=== PATIENT | male | born 1990 ===

== ENCOUNTER 2018-05-02 20:42 | Inpatient (IN) ==
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
[2018-05-02] MEDS: Propofol 1000 mg/100 ml Inj 1,000 MG/100 ML BOTTLE IV.CONT PRN (21:00)
[2018-05-02 21:02] LABS: Baso # (Auto) 0.2 th/mm3 (0.0-0.2); Baso % (Auto) 1.3 % (0.0-2.0); Eos # (Auto) 0.5 th/mm3 (0.0-0.4); Eos % (Auto) 3.9 % (0.0-4.0); Hemoglobin 15.5 gm/dL (13.0-17.0); Lymph # (Auto) 5.4 th/mm3 (1.0-4.8); Lymph % (Auto) 44.2 % (9.0-44.0); Mean Corpuscular HGB Conc 32.2 % (32.0-36.0); Mean Corpuscular Hemoglobin 28.4 pg (27.0-34.0); Mean Platelet Volume 8.2 fL (7.0-11.0); Mono # (Auto) 0.8 th/mm3 (0.0-0.9); Mono % (Auto) 6.2 % (0.0-8.0); Neut # (Auto) 5.4 th/mm3 (1.8-7.7); Neut % (Auto) 44.4 % (16.0-70.0); Platelet Count 409 th/mm3 (150-450); Red Blood Count 5.45 mil/mm3 (4.50-5.90); Red Cell Distribution Width 14.6 % (11.6-17.2); White Blood Count 12.3 th/mm3 (4.0-11.0)
[2018-05-02] MEDS ORDERED: Propofol 1000 mg/100 ml Inj 1,000 MG/100 ML BOTTLE IV.CONT PRN (21:02)
[2018-05-02] MEDS ORDERED: Bisacodyl 10 MG Supp RECTAL PRN (21:02)
[2018-05-02 21:12] LABS: Activated Partial Thrombo Time 24.2 sec (24.3-30.1); Prothrombin Time 9.7 sec (9.8-11.6)
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
[2018-05-02] MEDS ORDERED: Sod Chloride 0.9% Inj 1,000 ML IV.CONT SCH (21:15)
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
[2018-05-02 21:40] LABS: Eosinophils 3 % (0-4); Lymphocytes 45 % (9-44); Monocytes 6 % (0-8)
[2018-05-02 21:41] LABS: Platelet Estimate Normal (Normal); Platelet Morphology Normal (Normal)
[2018-05-02] MEDS: Midazolam 50 MG/50 ML Inj 50 MG/50 ML BAG IV.CONT PRN (22:00)
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
[2018-05-02 22:44] LABS: ABG Base Excess -0.3 mmol/L (-2-2); ABG PCO2 49 mmHg (38-42); ABG PO2 219 mmHg (61-120)
[2018-05-03] MEDS: Sod Chloride 0.9% Inj 1,000 ML IV.CONT SCH ×3 (02:37→19:09)
[2018-05-03] MEDS: levETIRAcetam 1000mg/100mL Inj 100 ML IV.SIG SCH ×3 (02:37→21:15)
[2018-05-03] MEDS: Propofol 1000 mg/100 ml Inj 1,000 MG/100 ML BOTTLE IV.CONT PRN ×3 (02:45→11:01)
[2018-05-03] MEDS ORDERED: Chlorhexidine Gluconate 2% 1 Pack (2 Cloths) TOPICAL PRN (04:00)
[2018-05-03 04:18] LABS: Alanine Aminotransferase 22 U/L (12-78); Albumin 3.4 g/dL (3.4-5.0); Anion Gap 7 meq/L (5-15); Aspartate Aminotransferase 17 U/L (15-37); Blood Urea Nitrogen 11 mg/dL (7-18); Calcium 7.5 mg/dL (8.5-10.1); Carbon Dioxide 27.8 meq/L (21.0-32.0); Chloride 114 meq/L (98-107); Glomerular Filtration Rate 69 mL/min (>89); Glucose,Random 90 mg/dL (74-106); Magnesium 2.1 mg/dL (1.5-2.5); Sodium 149 meq/L (136-145)
[2018-05-03 04:20] LABS: Alkaline Phosphatase 73 U/L (45-117); Baso # (Auto) 0.1 th/mm3 (0.0-0.2); Baso % (Auto) 1.1 % (0.0-2.0); Eos # (Auto) 0.2 th/mm3 (0.0-0.4); Eos % (Auto) 2.4 % (0.0-4.0); Hematocrit 40.6 % (39.0-51.0); Hemoglobin 13.5 gm/dL (13.0-17.0); Lymph # (Auto) 3.6 th/mm3 (1.0-4.8); Lymph % (Auto) 37.5 % (9.0-44.0); Mean Corpuscular HGB Conc 33.3 % (32.0-36.0); Mean Corpuscular Hemoglobin 28.7 pg (27.0-34.0); Mean Corpuscular Volume 86.3 fL (80.0-100.0); Mean Platelet Volume 8.2 fL (7.0-11.0); Mono # (Auto) 0.7 th/mm3 (0.0-0.9); Mono % (Auto) 6.9 % (0.0-8.0); Neut % (Auto) 52.1 % (16.0-70.0); Platelet Count 280 th/mm3 (150-450); Red Blood Count 4.71 mil/mm3 (4.50-5.90); Red Cell Distribution Width 14.3 % (11.6-17.2); Total Protein 5.9 g/dL (6.4-8.2); White Blood Count 9.6 th/mm3 (4.0-11.0)
[2018-05-03] MEDS: Chlorhexidine Gluconate 2% 1 Pack (2 Cloths) TOPICAL SCH (05:13)
[2018-05-03] MEDS: Midazolam 50 MG/50 ML Inj 50 MG/50 ML BAG IV.CONT PRN (05:14)
[2018-05-03 06:54] LABS: ABG Base Excess 1.8 mmol/L (-2-2); ABG PCO2 45 mmHg (38-42); ABG PO2 164 mmHg (61-120)
[2018-05-03] MEDS ORDERED: Pantoprazole Inj 40 MG Vial IV.PUSH SCH (09:00)
[2018-05-03] MEDS ORDERED: fentaNYL Citrate Inj 100 MCG/2 ML Ampul IV.PUSH PRN (09:42)
[2018-05-03] MEDS: Chlorhexidine 0.12% Oral Kit 15 ML UDC OROPHARYNG SCH ×2 (10:42→21:15)
[2018-05-03] MEDS: Senna/Docusate Sodium 8.6/50 MG Tablet PO SCH ×2 (10:45→21:14)
[2018-05-03] MEDS: Famotidine 20 MG Tablet PO SCH ×2 (10:50→21:14)
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
[2018-05-03] MEDS: Oral Hygiene Kit OROPHARYNG SCH ×2 (12:57→19:09)
[2018-05-03 13:09] LABS: Amphetamine Screen,Urine Neg (Neg); Barbiturate Screen,Urine Neg (Neg); Cannabinoid Screen,Urine Neg (Neg); Cocaine Screen,Urine Neg (Neg)
[2018-05-03 13:14] LABS: Opiate Screen,Urine Neg (Neg)
[2018-05-03 13:45] LABS: Free T4 (Free Thyroxine) 0.86 ng/dL (0.76-1.46); Thyroid Stimulating Hormone 0.271 uIU/mL (0.358-3.740)
--- NOTE | 2018-05-03 14:21 | MG ---
cc: Lázaro Vargas MD, PhD TEST NUMBER: [id number] TECHNIQUE: A 17-channel EEG DESCRIPTION: The background rhythm reveals symmetric rhythm with a fairly rapid frequency of about 15-18 Hz. The amplitude is 30 microvolts. Underlying this rhythm appears to be a slower rhythm in the theta frequency, at times delta frequency at 4 Hz to 6 Hz. There are no lateralizing features. There are no epileptiform discharges present. Hyperventilation was not done. Photic results in a modest driving response. INTERPRETATION: Abnormal study. The background rhythm is generally slow consistent with an encephalopathy. However, there is a much more rapid superimposed rhythm which is probably medication effect, i.e., benzodiazepine. Lázaro Vargas MD, PhD NIGEL/carolin , 02:03 PM , 02:05 PM
[2018-05-03 14:33] LABS: Amorphous Sediment,Urine Many /hpf; Bilirubin,Urine Negative (Negative); Clarity,Urine Turbid (Clear); Color,Urine Yellow (Yellw/Straw); Glucose,Urine (UA) Negative (Negative); Leukocyte Esterase,Urine Trace (Negative); Mucus,Urine Few /lpf (Occasional); Nitrite,Urine Negative (Negative); Specific Gravity,Urine 1.032 (1.002-1.035); Squamous Epithelial Cell,Urine 1 /hpf (0-5)
[2018-05-03] MEDS: Acetaminophen 325 MG Tablet PO PRN (21:15)
[2018-05-03] MEDS: HYDROmorphone PF Inj 2 MG/ML Vial IV.PUSH PRN (21:54)
[2018-05-04] MEDS: Oral Hygiene Kit OROPHARYNG SCH ×3 (00:53→13:10)
[2018-05-04] MEDS: HYDROmorphone PF Inj 2 MG/ML Vial IV.PUSH PRN ×5 (00:53→14:06)
[2018-05-04] MEDS: Acetaminophen 325 MG Tablet PO PRN ×4 (03:26→20:18)
[2018-05-04] MEDS: Chlorhexidine Gluconate 2% 1 Pack (2 Cloths) TOPICAL SCH (03:27)
[2018-05-04] MEDS: Sod Chloride 0.9% Inj 1,000 ML IV.CONT SCH (03:27)
[2018-05-04 04:44] LABS: Baso # (Auto) 0.1 th/mm3 (0.0-0.2); Baso % (Auto) 0.6 % (0.0-2.0); Eos # (Auto) 0.1 th/mm3 (0.0-0.4); Eos % (Auto) 0.9 % (0.0-4.0); Hemoglobin 11.9 gm/dL (13.0-17.0); Mean Corpuscular HGB Conc 33.2 % (32.0-36.0); Mean Corpuscular Hemoglobin 28.9 pg (27.0-34.0); Mean Platelet Volume 8.2 fL (7.0-11.0); Mono % (Auto) 9.2 % (0.0-8.0); Neut # (Auto) 6.3 th/mm3 (1.8-7.7); Neut % (Auto) 60.3 % (16.0-70.0); Platelet Count 196 th/mm3 (150-450); Red Blood Count 4.14 mil/mm3 (4.50-5.90); Red Cell Distribution Width 14.1 % (11.6-17.2); White Blood Count 10.5 th/mm3 (4.0-11.0)
[2018-05-04 05:10] LABS: Anion Gap 8 meq/L (5-15); Blood Urea Nitrogen 8 mg/dL (7-18); Calcium 7.6 mg/dL (8.5-10.1); Carbon Dioxide 28.3 meq/L (21.0-32.0); Chloride 109 meq/L (98-107); Glomerular Filtration Rate Greater Than 89 mL/min (>89); Glucose,Random 106 mg/dL (74-106); Potassium 3.6 meq/L (3.5-5.1); Sodium 145 meq/L (136-145)
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
[2018-05-04] MEDS ORDERED: Gadobutrol PF 10 MMOL/10 ML Vial (for RAD) IV.SIG ONE (09:10)
[2018-05-04] MEDS: levETIRAcetam 1000mg/100mL Inj 100 ML IV.SIG SCH (09:22)
[2018-05-04] MEDS: Famotidine 20 MG Tablet PO SCH ×2 (09:22→20:04)
--- NOTE | 2018-05-04 09:26 | MR ---
EXAM DATE: 05/04/2018 9:13 AM EDT AGE/SEX: 28 years / Male INDICATIONS: Seizures. CLINICAL DATA: This is the patient's initial encounter. Patient reports that signs and symptoms have been present for 2 days and indicates a pain score of 0/10. MEDICAL/SURGICAL HISTORY: None. Appendectomy. COMPARISON: [facility] [place]/O [place]AST, 05/02/2018. . TECHNIQUE: Multiplanar, multisequence examination of the brain was performed without and with 10cc ml Gadavist (gadobutrol) contrast as a single exam dose. FINDINGS: Cerebrum: The ventricles are normal for age. No evidence of midline shift, mass lesion, hemorrhage or acute infarction. No extraaxial fluid collections are seen. The pituitary gland and suprasellar cistern are normal in configuration. White Matter: No significant signal abnormalities are seen in the white matter. Posterior Fossa: The cerebellum and brainstem are intact. The 4th ventricle is midline. The cerebel lopontine angle is unremarkable. The cerebellar tonsils are normal in position. Diffusion Imaging: No focal areas of restricted diffusion are seen. No evidence of acute infarction . Extracranial: The visualized portions of the orbits and paranasal sinuses are unremarkable. Post Contrast: No abnormal areas of parenchymal or dural enhancement. No evidence of blood-brain ba rrier breakdown. CONCLUSION: 1. Negative MR Brain with and without contrast. Electronically signed by: Ed Carnes MD 05/04/2018 9:25 AM EDT
[2018-05-04] MEDS: Chlorhexidine 0.12% Oral Kit 15 ML UDC OROPHARYNG SCH (10:27)
[2018-05-04] MEDS: Senna/Docusate Sodium 8.6/50 MG Tablet PO SCH ×2 (10:27→20:04)
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
[2018-05-04] MEDS: Gabapentin 400 MG Capsule PO SCH ×2 (12:41→17:50)
--- NOTE | 2018-05-04 15:21 | MR ---
EXAM DATE: 05/04/2018 9:29 AM EDT AGE/SEX: 28 years / Male INDICATIONS: . Seizures. CLINICAL DATA: This is the patient's initial encounter. Patient reports that signs and symptoms have been present for 2 days and indicates a pain score of 0/10. MEDICAL/SURGICAL HISTORY: None. Appendectomy. Septoplasty. COMPARISON: [facility] – [place], [place] CERVICAL SPINE W/O CONTRAST, 05/02/2018. [facility] [place], [place] HEAD W & W/O CONTRAST, 04/20. [facility] [place], [place] HEAD W/O CONTRAST, 05/02/2018. . TECHNIQUE: 10cc ml Gadavist (gadobutrol) contrast infused MRA (single exam dose) of the extracrania l circulation was performed using a neurovascular coil. Postprocessing was performed, including rota ting sub-volume maximum intensity projections of each carotid artery, rotating full-volume maximum in tensity projections of both carotid arteries, sagittal and coronal sliding thin-slab reformations of each carotid artery, and left oblique sliding thin-slab reformation through the aortic arch to includ e the origin of the arch branch vessels. FINDINGS: Aortic Arch : There is a three-vessel origin of the great vessels from the aorta. No evidence of o stial narrowing. Right Carotid : The common carotid artery is intact. The carotid bulb has a normal configuration wi thout ulceration or narrowing. The internal carotid artery lumen is smooth without stenosis. The ex ternal carotid artery is intact. Left Carotid : The common carotid artery is intact. The carotid bulb has a normal configuration wit hout ulceration or narrowing. The internal carotid artery lumen is smooth without stenosis. The ext ernal carotid artery is intact. Vertebrals : The vertebral arteries have a symmetric diameter. No stenotic lesions are seen. CONCLUSION: 1. Negative MRA Carotids. Percent stenosis is calculated using the diameter of the stenotic region over the diameter of the nor mal distal internal carotid artery Electronically signed by: Ed Carnes MD 05/04/2018 9:33 ERIK
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
[2018-05-04] MEDS: levETIRAcetam 500 MG Tablet PO SCH (20:04)
[2018-05-04] MEDS: traZODone 50 MG Tablet PO SCH (20:04)
[2018-05-05] MEDS: Chlorhexidine Gluconate 2% 1 Pack (2 Cloths) TOPICAL SCH (06:31)
[2018-05-05] MEDS: Acetaminophen 325 MG Tablet PO PRN ×3 (06:32→20:13)
[2018-05-05] MEDS: Gabapentin 400 MG Capsule PO SCH ×3 (09:29→17:56)
[2018-05-05] MEDS: levETIRAcetam 500 MG Tablet PO SCH ×2 (09:29→20:14)
[2018-05-05] MEDS: Famotidine 20 MG Tablet PO SCH ×2 (09:29→20:14)
[2018-05-05] MEDS: Senna/Docusate Sodium 8.6/50 MG Tablet PO SCH ×2 (09:29→20:13)
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
[2018-05-05] MEDS: guaiFENesin 600 MG ER Tablet PO SCH ×2 (14:23→20:13)
[2018-05-05] MEDS: traZODone 50 MG Tablet PO SCH (20:14)
[2018-05-05 23:51] VITALS: TEMP 97.7
[2018-05-06] MEDS: Chlorhexidine Gluconate 2% 1 Pack (2 Cloths) TOPICAL SCH (08:12)
[2018-05-06] MEDS: Acetaminophen 325 MG Tablet PO PRN (08:34)
[2018-05-06] MEDS: Gabapentin 400 MG Capsule PO SCH (08:34)
[2018-05-06] MEDS: Senna/Docusate Sodium 8.6/50 MG Tablet PO SCH (08:35)
[2018-05-06] MEDS: Famotidine 20 MG Tablet PO SCH (08:35)
[2018-05-06] MEDS: levETIRAcetam 500 MG Tablet PO SCH (08:35)
[2018-05-06] MEDS: guaiFENesin 600 MG ER Tablet PO SCH (08:35)
[2018-05-06 08:51] VITALS: RESP 16
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
[2018-05-06 13:09] VITALS: BP 131/78; PULSE 67; O2SAT 99
[2018-05-06 15:14] LABS: Anti-Nuclear Antibody Screen Neg (Neg)
[2018-05-07 15:52] LABS: Methylmalonic Acid 0.12 nmol/mL (<=0.40)
== END 2018-05-06 13:21 ==
LOC: NEPI 20:42 → EDBD 21:18 → NEDA 21:18 → N03 21:36 → N06 05-04 13:20
PROVIDERS: ADMIT Surgery; ATTEND Surgery

== ENCOUNTER 2018-05-06 12:38 | Inpatient (IN) ==
[2018-05-06] MEDS ORDERED: LORazepam 1 MG Tablet PO PRN ×2 (18:01→18:07)
[2018-05-06] MEDS ORDERED: Bisacodyl 10 MG Supp RECTAL PRN (18:01)
[2018-05-06] MEDS ORDERED: Aluminum/Magnesium/Simethacone Susp 30 ML UDC PO PRN (18:01)
[2018-05-06] MEDS ORDERED: Haloperidol Inj 5 MG/ML Ampul IV.PUSH PRN (18:07)
[2018-05-06] MEDS: Benzocaine/Menthol 15 MG/3.6 MG SF Lozenge BUCCAL PRN (22:24)
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
[2018-05-07] MEDS: Gabapentin 400 MG Capsule PO SCH ×2 (12:05→18:19)
[2018-05-07] MEDS: Venlafaxine XR 37.5 MG Capsule PO SCH (12:05)
[2018-05-07] MEDS: Benzocaine/Menthol 15 MG/3.6 MG SF Lozenge BUCCAL PRN ×2 (12:06→20:30)
--- NOTE | 2018-05-07 17:49 | ECG ---
Date Performed: 05/07/2018 Time Performed: 07:39:01 PTAGE: 28 years EKG: SINUS BRADYCARDIA WITH MARKED SINUS ARRHYTHMIA BORDERLINE ECG NO PREVIOUS TRACING DOCTOR: Sweetie Sheehan Interpretating Date/Time 05/07/2018 17:44:40
[2018-05-07] MEDS: traZODone 50 MG Tablet PO PRN (20:30)
[2018-05-07] MEDS: Acetaminophen 325 MG Tablet PO PRN (20:32)
[2018-05-08] MEDS: Gabapentin 400 MG Capsule PO SCH ×3 (11:26→21:37)
[2018-05-08] MEDS: Venlafaxine XR 37.5 MG Capsule PO SCH (11:26)
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
[2018-05-08] MEDS: traZODone 50 MG Tablet PO PRN (21:29)
[2018-05-08] MEDS: Acetaminophen 325 MG Tablet PO PRN (21:29)
[2018-05-08] MEDS: Benzocaine/Menthol 15 MG/3.6 MG SF Lozenge BUCCAL PRN (21:29)
[2018-05-09] MEDS: Venlafaxine XR 37.5 MG Capsule PO SCH (09:29)
[2018-05-09] MEDS: Gabapentin 400 MG Capsule PO SCH ×3 (09:29→21:24)
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
[2018-05-10] MEDS: Acetaminophen 325 MG Tablet PO PRN (05:44)
[2018-05-10 05:54] VITALS: BP 110/56; PULSE 56; RESP 16; TEMP 98.2; O2SAT 97
[2018-05-10] MEDS: Venlafaxine XR 37.5 MG Capsule PO SCH (08:17)
[2018-05-10] MEDS: Gabapentin 400 MG Capsule PO SCH ×2 (08:17→12:40)
[2018-05-10] MEDS ORDERED: levETIRAcetam 500 MG Tablet PO SCH (11:00)
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
== END 2018-05-10 13:25 ==
LOC: H4EA 13:37
PROVIDERS: ADMIT Student in an Organized Health Care Education/Training Program; ATTEND Student in an Organized Health Care Education/Training Program